=== PATIENT | female | born 2005 | race Two or more races ===

== ENCOUNTER 2025-04-24 09:58 | Emergency (ER) | payer BC, OTHER ==
[~2025-04-24] VITALS: Ht 170.2 cm; Wt 92.2 kg
--- NOTE | 2025-04-24 10:34 | ED.PDOC ---
HPI (NEURO) HPI Comments 19-year-old female presents to the ER with a prior MHx of anxiety, CADET, TIA and the chief complaint of headache. The patient is currently 12 weeks and has been having a headache located to the left temporal region with the association of pressure behind the left eye since 7:00 a.m.. Patient did take Tylenol at 8:00 a.m. of 500 mg. Patient notes on having intermittent nausea. Patient states TV static on right-sided vision. Hx of Migraines No red flags Denies recent changes in medications Denies alcohol, caffeine, illicit drug use Denies benzodiazepines Denies thyroid disorders Denies SI/HI/AH Denies guns at home Denies family history of mental health issue Chief Complaint: Headache Time Seen by MD: 10:20 Reviewed Notes: Nurses Notes, Medications, Allergies Information Source: Patient Mode of Arrival: Ambulatory Severity: Moderate Dizziness/Weakness Severity: Does not affect activitie Headache Severity: Moderate Timing: Hours Duration: Since onset, Hours Prehospital treatment: None Headache Quality: Other (Pressure-like) Headache Location: Temporal (Left temporal) Onset: At rest Circumstances: Spontaneous Symptoms: Change of vision Before: Normal During: Awake After: Normal Mentation History of: TIA Associated Signs and Symptoms: Headache, Nausea Past Medical History PAST MEDICAL HISTORY: Anxiety, TIA Past Medical History (Other): Chronic headache Surgical History: Denies all surgeries SOFTWARE PROJECT MANAGER History: No Pertinent SOFTWARE PROJECT MANAGER History Family History Family History: Reviewed,noncontributory to illness, Unknown Social History Smoker: Non-Smoker Alcohol: Denies ETOH Use Drugs: Denies Drug Use Lives In: Home Constitutional: denies: chills, diaphoresis, fatigue, fever, malaise, sweats, weakness, others EENTM: denies: blurred vision, double vision, ear bleeding, ear discharge, ear drainage, ear pain, ear ringing, eye pain, eye redness, hearing loss, mouth pain, mouth swelling, nasal discharge, nose bleeding, nose congestion, nose pain, photophobia, tearing, throat pain, throat swelling, voice changes, others Respiratory: denies: cough, hemoptysis, orthopnea, SOB at rest, shortness of breath, SOB with excertion, stridor, wheezing, others Cardiovascular: denies: chest pain, dizzy spells, diaphoresis, Dyspnea on exertion, edema, irregular heart beat, left arm pain, lightheadedness, palpitations, PND, syncope, others Gastrointestinal: denies: abdomen distended, abdominal pain, blood streaked bowels, constipated, diarrhea, dysphagia, difficulty swallowing, hematemesis, melena, nausea, poor appetite, poor fluid intake, rectal bleeding, rectal pain, vomiting, others Genitourinary: denies: abnormal vagina bleeding, burning, dyspareunia, dysuria, flank pain, frequency, hematuria, incontinence, pain, , vagina discharge, urgency, others Neurological: reports: headache; denies: dizziness, fainting, left sided numbness, left sided weakness, numbness, paresthesia, pre-existing deficit, right sided numbness, right sided weakness, seizure, speech problems, tingling, tremors, weakness, others Musculoskeletal: denies: back pain, gout, joint pain, joint swelling, muscle pain, muscle stiffness, neck pain, others Integumetry: denies: bruises, change in color, change in hair/nails, dryness, laceration, lesions, lumps, rash, wounds, others Allergic/Immunocompromised: denies: Difficulty Healing, Frequent Infections, Hives, Itching, others Hematologic/Lymphatic: denies: anemia, blood clots, easy bleeding, easy bruising, swollen glands, others Endocrine: denies: excessive hunger, excessive sweating, excessive thirst, excessive urination, flushing, intolerance to cold, intolerance to heat, unexplained weight gain, unexplained weight loss, others Psychiatric: denies: anxiety, bipolar disorder, depression, hopeless, panic disorder, schizophrenia, sleepless, suicidal, others All Other Systems: Reviewed and Negative Physical Exam Exam Comments normocephalic atraumatic General Appearance: No Apparent Distress, Normal HEENT: Normal ENT Inspection, Pharynx Normal, TMs Normal Neck: Full Range of Motion, Non-Tender, Normal, Normal Inspection Respiratory: Chest Non-Tender, Lungs Clear, No Accessory Muscle Use, No Respiratory Distress, Normal Breath Sounds Cardiovascular: No Edema, No JVD, No Murmur, No Gallop, Normal Peripheral Pu lses, Regular Rate/Rhythm Breast Exam: Deferred Gastrointestinal: No Organomegaly, Non Tender, No Pulsatile Mass, Normal Bowel Sounds, Soft Genitalia: Deferred Pelvic: Deferred Rectal: Deferred Extremities: No calf tenderness, Normal capillary refill, Normal inspection, Normal range of motion, Non-tender, No pedal edema Musculoskeletal : Apperance: Normal Neurologic: Alert, director of counterintelligence II-XII nml as Tested, No Motor Deficits, Normal Affect, Normal Mood, No Sensory Deficits Cerebellar Function: Normal Reflexes: Normal Skin: Dry, Normal Color, Warm Lymphatic: No Adenopathy Was a procedure done? Was a procedure done?: No Differential Diagnosis (SZ) Seizure: Other Headache: Cluster, Migraine, Other X-Ray, Labs, Meds, VS Vital Signs Date Time Temp Pulse Resp B/P (MAP) Pulse Ox O2 Delivery O2 Flow Rate FiO2 04/24/25 12:53 98.7 83 17 139/88 (105) 99 98.7 04/24/25 10:36 98.7 97 16 144/96 (112) 97 98.7 04/24/25 10:36 97 16 97 Room Air 04/24/25 10:19 98.3 94 16 145/88 (107) 99 98.3 Lab Test 04/24/25 10:30 04/24/25 10:05 Range/Units Urine Color Light-yellow Yellow Urine Clarity Clear Clear Urine pH 5.5 5.0-9.0 Urine Specific [place] 1.026 1.001-1.035 Urine Protein Negative Negative Urine Ketones Negative Negative Urine Blood Negative Negative /uL Urine Nitrite Negative Negative Urine Bilirubin Negative Negative Urine Urobilinogen Normal Negative mg/dL Urine Leukocyte Esterase 2+ Negative /uL Urine RBC 3 0 - 4 /hpf Urine Microscopic WBC 7 H 0-5 /HPF Urine Squamous Epithelial Cells Few <5 /hpf Urine Bacteria Few H None Seen /hpf Urine Mucus Few None Seen Urine Glucose Normal Normal mg/dL Urine Test Positive Negative White Blood Count 6.9 4.4-10.8 10^3/uL Red Blood Count 4.93 4.0-5.20 10^6/uL Hemoglobin 14.8 12.2-16.2 g/dL Hematocrit 42.1 36.0-46.0 % Mean Corpuscular Volume 85.3 80.0-100.0 fL Mean Corpuscular Hemoglobin 30.0 28.0-32.0 pg Mean Corpuscular Hemoglobin Concent 35.1 32.0-36.0 g/dL Red Cell Distribution Width 12.8 11.8-14.3 % Platelet Count 278 140-450 10^3/uL Mean Platelet Volume 7.1 6.9-10.8 fL Neutrophils (%) (Auto) 77.0 37.0-80.0 % Lymphocytes (%) (Auto) 17.0 10.0-50.0 % Monocytes (%) (Auto) 4.6 0.0-12.0 % Eosinophils (%) (Auto) 1.0 0.0-7.0 % Basophils (%) (Auto) 0.4 0.0-2.0 % Neutrophils # (Auto) 5.3 1.6-8.6 10 ^3/uL Lymphocytes # (Auto) 1.2 0.4-5.4 10 ^3/uL Monocytes # (Auto) 0.3 0-1.3 10 ^3/uL Eosinophils # (Auto) 0.1 0-0.8 10 ^3/uL Basophils # (Auto) 0 0-0.2 10 ^3/uL Nucleated Red Blood Cells 0.0 % Sodium Level 137 136-145 mmol/L Potassium Level 3.7 3.5-5.1 mmol/L Chloride Level 104 98-107 mmol/L Carbon Dioxide Level 24 20-31 mmol/L Anion Gap 9 5-15 Blood Urea Nitrogen 12 9-23 mg/dL Creatinine 0.60 0.550-1.02 mg/dL Glomerular Filtration Rate Calc 131 >90 mL/min BUN/Creatinine Ratio 20.0 10.0-20.0 Serum Glucose 94 74-106 mg/dL Calcium Level 10.0 8.7-10.4 mg/dL X-Ray, Labs, Meds, VS Comment 19-year-old female presents to the ER with a prior MHx of anxiety, CADET, TIA and the chief complaint of headache. Patient arrives alert and oriented, ABC's intact, afebrile, vital signs stable, saturating well in room air CBC was ordered to exclude anemia, blood loss, or infection. BMP was ordered to exclude electrolyte abnormalities, renal failure, dehydration, hyperglycemia Urinalysis was ordered to rule out UTI or hematuria. Patient was given: Tylenol, metoclopramide,. Tolerated medications with no adverse reaction. The patients history and physical exam are consistent with a benign headache. Likely Migraine Considered subarachnoid hemorrhage however this is less likely given that the patient has had a similar and worst headaches in the past, the lack of trauma, and the slow onset with intermittent symptomatology. Low suspicion of meningitis given the afebrile, well-appearing, and without meningismus on exam. Additionally no history of recent trauma prior to the patient experiencing this headache. Finally, the patient does not report any positional exacerbation with the headaches and has not had a recent spinal procedures therefore my suspicion for central causes and post procedural etiologies of headaches are less likely. Low concern for meningitis as there are no signs of fever, altered mentation nor neck stiffness. Brudzinski/Kernig negative. Low concern for subarachnoid hemorrhage there are no signs of a thunderclap headache Low concern for subdural hematoma and intracranial hemorrhage as there is no history of trauma, progressively worsening headache and neuroexam is unrem arkable. Low suspicion for brain tumor as neuroexam is unremarkable. No nausea vomiting. No morning or nocturnal headache. No suspicion for temporal arteritis as there are no signs of fever, muscle weakness, jaw claudication, no transient visual loss. Given benign exam and history, CT imaging was discussed with the patient and was deferred during this visit. Patient was overall well-appearing and hemodynamically stable in the ED. They were able to ambulate and continued to have a nonfocal exam in the emergency department. Discussed continued symptomatic treatment at home. Recommended follow up with PCP. Return precautions to the ED discussed Patient is stable for discharge at this time. External notes reviewed. Test results and diagnostic imaging interpreted. All diagnostic findings, discharge care, education and instructions provided Follow-up with PCP in 2 to 3 days Patient verbalized understanding and agreed to treatment plan Vital signs stable, afebrile, no acute distress noted Patient ambulatory with strong steady gait Advised to return precautions for any new or worsening symptoms, return to ER immediately for re-evaluation Patient is aware that the purpose of this visit was for an acute medical emergency requiring emergent stabilization. Chronic conditions, including malignancies have not been ruled out. Patient is instructed to follow up with PCP as directed and discharge instructions for continued care and workup. If unable to arrange follow-up, patient is to return to the emergency department for reassessment. Patient (parent or legal guardian if applicable) was given verbal and written discharge instructions and acknowledges understanding. Additional MDM Review of External, Non-ED records: External records reviewed. Discussion with independent historian (EMS, family) history obtained from the patient/parents (if applicable) at bedside Chronic conditions affecting care: None Social determinants of health affecting care: None Consideration of admission (observation or admission): I considered escalation of care to admission for this patient, however given the reassuring workup, the patient is safe for outpatient management. Discussion with the Radiology: No Tests considered but not performed: Prescription medication considered but not given: Time of 1ST Reevaluation: 10:50 Reevaluation 1ST: Improved Patient Education/Counseling: Diagnosis, Treatment Family Education/Counseling: Diagnosis, Treatment Departure 1 Departure Time of Disposition: 12:39 Impression: Primary Impression: Headache in Qualified Codes: O26.891 - Other specified related conditions, first trimester; R51.9 - Headache, unspecified Additional Impression: Elevated blood pressure reading Disposition: HOME / SELF CARE / HOMELESS Condition: Fair Discharged With: Self Critical Care Note Critical Care Time?: No Stability Stability form required: No Heart Score Heart Score: Heart Score Response (Comments) Value History N/A 0 EKG N/A 0 Age N/A 0 Risk Factors N/A 0 Troponin N/A 0 Total 0 I personally scribed for LILIAM MELÉNDEZ NP ([employer]) on 04/24/25 at 10:34. Electronically submitted by Stevenson Lees ([email or web address]). I personally scribed for LILIAM MELÉNDEZ NP ([employer]) on 04/24/25 at 10:35. Electronically submitted by Stevenson Lees ([email or web address]). LILIAM MELÉNDEZ NP Apr 24, 2025 10:34
[2025-04-24] MEDS: METOCLOPRAMIDE HCL 5MG/ml INJ 2ml VIAL IM ONE (10:38)
[2025-04-24] MEDS: ACETAMINOPHEN 500 MG TAB or CAP PO ONE (10:39)
[2025-04-24 11:13] LABS: Hematocrit 42.1 % (36.0-46.0); Hemoglobin 14.8 g/dL (12.2-16.2); Mean Corpuscular Hemoglobin 30.0 pg (28.0-32.0); Mean Corpuscular Volume 85.3 fL (80.0-100.0); Nucleated Red Blood Cells % 0.0 %
[2025-04-24 11:23] LABS: Urine Protein, UAD Negative (Negative)
[2025-04-24 11:32] LABS: Chloride 104 mmol/L (98-107); Potassium 3.7 mmol/L (3.5-5.1); Sodium 137 mmol/L (136-145)
[2025-04-24 11:33] LABS: Anion Gap 9 (5-15); Carbon Dioxide 24 mmol/L (20-31)
[2025-04-24 11:34] LABS: Calcium 10.0 mg/dL (8.7-10.4)
[2025-04-24 11:38] LABS: BUN/Creatinine Ratio 20.0 (10.0-20.0); Blood Urea Nitrogen 12 mg/dL (9-23); Glucose 94 mg/dL (74-106)
[2025-04-24 12:53] VITALS: BP 139/88; PULSE 83; RESP 17; TEMP 98.7; O2SAT 99
== END 2025-04-24 12:55 | disposition home or self-care (01) ==
LOC: ER 09:58
DX: O29.41 Spinal and epidural anesthesia induced headache during pregnancy, first trimester (principal); F41.9 Anxiety disorder, unspecified; R03.0 Elevated blood-pressure reading, without diagnosis of hypertension; Z3A.12 12 weeks gestation of pregnancy
CPT/HCPCS: 36415; 80048; 81001; 81025; 85025; 96372; 99283; J2765

== ENCOUNTER 2025-08-15 14:35 | Emergency (ER) | payer BC, OTHER ==
[~2025-08-15] VITALS: Ht 170.2 cm; Wt 101.3 kg
--- NOTE | 2025-08-15 16:01 | ED.PDOC ---
History of Present Illness HPI Comments 20 year old female with PMHx anxiety presents to the ED with a chief complaint of dizziness onset today. Patient states she was asleep, woke up around 04:00 experiencing dizziness, went back to sleep, woke up around 07:00, experiencing dizziness. She is currently 7 months . Upon ED arrival, BG was 77, called OBGYN, was recommended to come to ED. Denies fever, chills, nausea, vomiting, diarrhea, headache, cough, cold, congestion. No other symptoms or modifying factors present at this time. Chief Complaint: Dizziness Time Seen by MD: 15:50 Reviewed Notes: Nurses Notes, Medications, Allergies Allergies: Coded Allergies: NO KNOWN ALLERGIES (Unverified , 04/24/25) Information Source: Patient Mode of Arrival: Ambulatory Severity: Moderate Timing: Hours Duration: Since onset Prehospital treatment: None Past Medical History PAST MEDICAL HISTORY: Anxiety, TIA Surgical History: Denies all surgeries OCCUPATIONAL PSYCHOLOGIST History: No Pertinent OCCUPATIONAL PSYCHOLOGIST History Family History Family History: Reviewed,noncontributory to illness, Unknown Social History Smoker: Non-Smoker Alcohol: Denies ETOH Use Drugs: Denies Drug Use Lives In: Home Constitutional: denies: chills, diaphoresis, fatigue, fever, malaise, sweats, weakness, others EENTM: denies: blurred vision, double vision, ear bleeding, ear discharge, ear drainage, ear pain, ear ringing, eye pain, eye redness, hearing loss, mouth pain, mouth swelling, nasal discharge, nose bleeding, nose congestion, nose pain, photophobia, tearing, throat pain, throat swelling, voice changes, others Respiratory: denies: cough, hemoptysis, orthopnea, SOB at rest, shortness of breath, SOB with excertion, stridor, wheezing, others Cardiovascular: denies: chest pain, dizzy spells, diaphoresis, Dyspnea on exertion, edema, irregular heart beat, left arm pain, lightheadedness, palpitations, PND, syncope, others Gastrointestinal: denies: abdomen distended, abdominal pain, blood streaked bowels, constipated, diarrhea, dysphagia, difficulty swallowing, hematemesis, melena, nausea, poor appetite, poor fluid intake, rectal bleeding, rectal pain, vomiting, others Genitourinary: reports: ; denies: abnormal vagina bleeding, burning, dyspareunia, dysuria, flank pain, frequency, hematuria, incontinence, pain, vagina discharge, urgency, others Neurological: reports: dizziness; denies: fainting, headache, left sided numbness, left sided weakness, numbness, paresthesia, pre-existing deficit, right sided numbness, right sided weakness, seizure, speech problems, tingling, tremors, weakness, others Musculoskeletal: denies: back pain, gout, joint pain, joint swelling, muscle pain, muscle stiffness, neck pain, others Integumetry: denies: bruises, change in color, change in hair/nails, dryness, laceration, lesions, lumps, rash, wounds, others Allergic/Immunocompromised: denies: Difficulty Healing, Frequent Infections, Hives, Itching, others Hematologic/Lymphatic: denies: anemia, blood clots, easy bleeding, easy bruising, swollen glands, others Endocrine: denies: excessive hunger, excessive sweating, excessive thirst, excessive urination, flushing, intolerance to cold, intolerance to heat, unexplained weight gain, unexplained weight loss, others Psychiatric: denies: anxiety, bipolar disorder, depression, hopeless, panic disorder, schizophrenia, sleepless, suicidal, others All Other Systems: Reviewed and Negative Physical Exam General Appearance: No Apparent Distress, Normal HEENT: Normal ENT Inspection, Pharynx Normal, TMs Normal Neck: Full Range of Motion, Non-Tender, Normal, Normal Inspection Respiratory: Chest Non-Tender, Lungs Clear, No Accessory Muscle Use, No Respiratory Distress, Normal Breath Sounds Cardiovascular: No Edema, No JVD, No Murmur, No Gallop, Normal Peripheral Pulses, Regular Rate/Rhythm Breast Exam: Deferred Gastrointestinal: No Organomegaly, Non Tender, No Pulsatile Mass, Normal Bowel Sounds, Soft Genitalia: Deferred Pelvic: Deferred Rectal: Deferred Extremities: No calf tenderness, Normal capillary refill, Normal inspection, Normal range of motion, Non-tender, No pedal edema Musculoskeletal : Apperance: Normal Neurologic: Alert, senior ssis developer II-XII nml as Tested, No Motor Deficits, Normal Affect, Normal Mood, No Sensory Deficits Cerebellar Function: Normal Reflexes: Normal Skin: Dry, Normal Color, Warm Lymphatic: No Adenopathy Was a procedure done? Was a procedure done?: No Differential Dx Considerations may include: Hypertension, low blood sugar, dehydration X-Ray, Labs, Meds, VS Vital Signs Date Time Temp Pulse Resp B/P (MAP) Pulse Ox O2 Delivery O2 Flow Rate FiO2 08/15/25 14:37 98.5 101 18 147/91 99 98.5 Lab Test 08/15/25 15:57 08/15/25 14:46 Range/Units White Blood Count 8.8 4.4-10.8 10^3/uL Red Blood Count 4.79 4.0-5.20 10^6/uL Hemoglobin 14.1 12.2-16.2 g/dL Hematocrit 40.7 36.0-46.0 % Mean Corpuscular Volume 84.9 80.0-100.0 fL Mean Corpuscular Hemoglobin 29.5 28.0-32.0 pg Mean Corpuscular Hemoglobin Concent 34.8 32.0-36.0 g/dL Red Cell Distribution Width 13.3 11.8-14.3 % Platelet Count 298 140-450 10^3/uL Mean Platelet Volume 8.0 6.9-10.8 fL Neutrophils (%) (Auto) 78.7 37.0-80.0 % Lymphocytes (%) (Auto) 15.4 10.0-50.0 % Monocytes (%) (Auto) 4.9 0.0-12.0 % Eosinophils (%) (Auto) 0.8 0.0-7.0 % Basophils (%) (Auto) 0.2 0.0-2.0 % Neutrophils # (Auto) 6.9 1.6-8.6 10 ^3/uL Lymphocytes # (Auto) 1.3 0.4-5.4 10 ^3/uL Monocytes # (Auto) 0.4 0-1.3 10 ^3/uL Eosinophils # (Auto) 0.1 0-0.8 10 ^3/uL Basophils # (Auto) 0 0-0.2 10 ^3/uL Nucleated Red Blood Cells 0.2 % Sodium Level 139 136-145 mmol/L Potassium Level 4.1 3.5-5.1 mmol/L Chloride Level 103 98-107 mmol/L Carbon Dioxide Level 25 20-31 mmol/L Anion Gap 11 5-15 Blood Urea Nitrogen 10 9-23 mg/dL Creatinine 0.56 0.550-1.02 mg/dL Glomerular Filtration Rate Calc 132 >90 mL/min BUN/Creatinine Ratio 17.9 10.0-20.0 Serum Glucose 79 74-106 mg/dL Calcium Level 9.4 8.7-10.4 mg/dL Total Bilirubin 0.2 0.2-1.0 mg/dL Aspartate Amino Transferase (AST) 14 13-40 U/L Alanine Aminotransferase (ALT) 29 7-40 U/L Alkaline Phosphatase 97 46-116 U/L Total Protein 6.5 5.7-8.2 g/dL Albumin 4.0 3.2-4.8 g/dL Urine Color Light-yellow Yellow Urine Clarity Clear Clear Urine pH 6.0 5.0-9.0 Urine Specific [place] 1.023 1.001-1.035 Urine Protein Negative Negative Urine Ketones Negative Negative Urine Blood Negative Negative /uL Urine Nitrite Negative Negative Urine Bilirubin Negative Negative Urine Urobilinogen Normal Negative mg/dL Urine Leukocyte Esterase Negative Negative /uL Urine RBC None seen 0 - 4 /hpf Urine Microscopic WBC 1 0-5 /HPF Urine Squamous Epithelial Cells Few <5 /hpf Urine Calcium Oxalate Crystals Many None Seen Urine Bacteria Few H None Seen /hpf Urine Mucus Few None Seen Urine Glucose Normal Normal mg/dL X-Ray, Labs, Meds, VS Comment Imaging was reviewed by this provider, there is no obvious pathological or acute disease process. Pending radiology review Labs were reviewed by this provider, no abnormalities Vital signs reviewed by this provider, clinically stable Time of 1ST Reevaluation: 16:20 Reevaluation 1ST: Unchanged Patient Education/Counseling: Diagnosis, Treatment, Prognosis, Need For Follow Up (Follow up with PCP/OBGYN next available appointment.) Family Education/Counseling: No Family Present SEPSIS Sepsis Screen Date sepsis recognized/suspect: Aug 15, 2025 Time Sepsis recognized/suspect: 1438 Recent Procedure: No On Antibiotic Therapy: No Respiratory Rate >20: No Heart Rate >90: No Temp<36 C (96.8 F) or >38.3 C: No SBP <90 or MAP <65 mmHG: No New Acute Mental Status Change: No Is the patient on CPAP, BIPAP,: No Vital Signs Date Time Temp Pulse Resp B/P (MAP) Pulse Ox O2 Delivery O2 Flow Rate FiO2 08/15/25 14:37 98.5 101 18 147/91 99 98.5 Laboratory Tests Test 08/15/25 15:57 White Blood Count 8.8 10^3/uL (4.4-10.8) Departure 1 Departure Time of Disposition: 17:51 Impression: Primary Impression: Benign positional vertigo Qualified Codes: H81.13 - Benign paroxysmal vertigo, bilateral Disposition: 01 HOME / SELF CARE / HOMELESS Condition: Stable Discharged With: Self Critical Care Note Critical Care Time?: No Stability Stability form required: No Heart Score Heart Score: Heart Score Response (Comments) Value History N/A 0 EKG N/A 0 Age N/A 0 Risk Factors N/A 0 Troponin N/A 0 Total 0 I personally scribed for MARTHA DOW ([email or web address]) on 08/15/25 at 16:01. Electronically submitted by Trixie Olivas ([email or web address]). MARTHA DOW Aug 15, 2025 16:01
[2025-08-15 16:16] LABS: Urine Protein, UAD Negative (Negative)
[2025-08-15 16:23] LABS: Hematocrit 40.7 % (36.0-46.0); Hemoglobin 14.1 g/dL (12.2-16.2); Mean Corpuscular Hemoglobin 29.5 pg (28.0-32.0); Mean Corpuscular Volume 84.9 fL (80.0-100.0); Nucleated Red Blood Cells % 0.2 %
[2025-08-15 16:37] LABS: Alanine Aminotransferase 29 U/L (7-40); Albumin 4.0 g/dL (3.2-4.8); Alkaline Phosphatase 97 U/L (46-116); Anion Gap 11 (5-15); BUN/Creatinine Ratio 17.9 (10.0-20.0); Blood Urea Nitrogen 10 mg/dL (9-23); Calcium 9.4 mg/dL (8.7-10.4); Carbon Dioxide 25 mmol/L (20-31); Chloride 103 mmol/L (98-107); Glucose 79 mg/dL (74-106); Potassium 4.1 mmol/L (3.5-5.1); Sodium 139 mmol/L (136-145); Total Protein 6.5 g/dL (5.7-8.2)
[2025-08-15 16:58] LABS: Bilirubin, Total 0.2 mg/dL (0.2-1.0)
[2025-08-15 18:25] VITALS: BP 123/93; TEMP 98.4
[2025-08-15 18:26] VITALS: PULSE 85; RESP 18; O2SAT 97
== END 2025-08-15 18:35 | disposition home or self-care (01) ==
LOC: ER 14:35
DX: O26.893 Other specified pregnancy related conditions, third trimester (principal); H81.13 Benign paroxysmal vertigo, bilateral; Z3A.00 Weeks of gestation of pregnancy not specified; Z86.73 Personal history of transient ischemic attack (TIA), and cerebral infarction without residual deficits
CPT/HCPCS: 36415; 80053; 81001; 82947; 85025

== ENCOUNTER 2025-09-24 16:42 | Inpatient (IN) | payer OTHER ==
[~2025-09-24] VITALS: Ht 170.2 cm; Wt 106.9 kg
--- NOTE | 2025-09-24 19:22 | ED.PDOC ---
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 Patient is a approximately 34 weeks , states her blood pressure has been elevated recently. On scene blood pressure was 166/ 117 mm Hg. Patient admits that she has been stressed recently. Denies any vaginal bleeding abdominal cramping. Chief Complaint: Anxiety Time Seen by MD: 19:21 Reviewed Notes: Nurses Notes Allergies: Coded Allergies: NO KNOWN ALLERGIES (Unverified , 04/24/25) Information Source: Patient Mode of Arrival: Ambulatory Past Medical History PAST MEDICAL HISTORY: Anxiety, Denies Surgical History: Denies all surgeries SUPERVISOR CLAM BED History: No Pertinent SUPERVISOR CLAM BED History 1 Para 0 Family History Family History: Reviewed,noncontributory to illness, Unknown Social History Smoker: Non-Smoker Alcohol: Denies ETOH Use Drugs: Denies Drug Use Lives In: Home Constitutional: denies: chills, diaphoresis, fatigue, fever, malaise, sweats, weakness, others EENTM: denies: blurred vision, double vision, ear bleeding, ear discharge, ear drainage, ear pain, ear ringing, eye pain, eye redness, hearing loss, mouth pain, mouth swelling, nasal discharge, nose bleeding, nose congestion, nose pain, photophobia, tearing, throat pain, throat swelling, voice changes, others Respiratory: denies: cough, hemoptysis, orthopnea, SOB at rest, shortness of breath, SOB with excertion, stridor, wheezing, others Cardiovascular: denies: chest pain, dizzy spells, diaphoresis, Dyspnea on exertion, edema, irregular heart beat, left arm pain, lightheadedness, palpitations, PND, syncope, others Gastrointestinal: denies: abdomen distended, abdominal pain, blood streaked bowels, constipated, diarrhea, dysphagia, difficulty swallowing, hematemesis, melena, nausea, poor appetite, poor fluid intake, rectal bleeding, rectal pain, vomiting, others Genitourinary: denies: abnormal vagina bleeding, burning, dyspareunia, dysuria, flank pain, frequency, hematuria, incontinence, pain, , vagina discharge, urgency, others Neurological: denies: dizziness, fainting, headache, left sided numbness, left sided weakness, numbness, paresthesia, pre-existing deficit, right sided numbness, right sided weakness, seizure, speech problems, tingling, tremors, weakness, others Musculoskeletal: denies: back pain, gout, joint pain, joint swelling, muscle pa in, muscle stiffness, neck pain, others Integumetry: denies: bruises, change in color, change in hair/nails, dryness, laceration, lesions, lumps, rash, wounds, others Allergic/Immunocompromised: denies: Difficulty Healing, Frequent Infections, Hives, Itching, others Hematologic/Lymphatic: denies: anemia, blood clots, easy bleeding, easy bruising, swollen glands, others Endocrine: denies: excessive hunger, excessive sweating, excessive thirst, excessive urination, flushing, intolerance to cold, intolerance to heat, unexplained weight gain, unexplained weight loss, others Psychiatric: denies: anxiety, bipolar disorder, depression, hopeless, panic disorder, schizophrenia, sleepless, suicidal, others Physical Exam General Appearance: No Apparent Distress, Normal HEENT: Normal ENT Inspection, Pharynx Normal, TMs Normal Neck: Full Range of Motion, Non-Tender, Normal, Normal Inspection Respiratory: Chest Non-Tender, Lungs Clear, No Accessory Muscle Use, No Respiratory Distress, Normal Breath Sounds Cardiovascular: No Edema, No JVD, No Murmur, No Gallop, Normal Peripheral Pulses, Regular Rate/Rhythm Breast Exam: Deferred Gastrointestinal: No Organomegaly, Non Tender, No Pulsatile Mass, Normal Bowel Sounds, Soft Genitalia: Deferred Pelvic: Deferred Rectal: Deferred Extremities: No calf tenderness, Normal capillary refill, Normal inspection, Normal range of motion, Non-tender, No pedal edema Musculoskeletal : Apperance: Normal Neurologic: Alert, construction checker II-XII nml as Tested, No Motor Deficits, Normal Affect, Normal Mood, No Sensory Deficits Cerebellar Function: Normal Reflexes: Normal Skin: Dry, Normal Color, Warm Lymphatic: No Adenopathy Was a procedure done? Was a procedure done?: No Differential Diagnosis (SUPERVISOR CLAM BED) Vaginal Discharge: , UTI Comments Preeclampsia X-Ray, Labs, Meds, VS Vital Signs Date Time Temp Pulse Resp B/P (MAP) Pulse Ox O2 Delivery O2 Flow Rate FiO2 09/24/25 18:53 98.6 84 18 144/94 (111) 98 98.6 09/24/25 16:44 98.3 119 20 166/117 98 98.3 Lab Test 09/24/25 19:14 Range/Units Urine Color Light-yellow Yellow Urine Clarity Clear Clear Urine pH 6.5 5.0-9.0 Urine Specific [place] 1.015 1.001-1.035 Urine Protein Negative Negative Urine Ketones 1+ H Negative Urine Blood Negative Negative /uL Urine Nitrite Negative Negative Urine Bilirubin Negative Negative Urine Urobilinogen Normal Negative mg/dL Urine Leukocyte Esterase Negative Negative /uL Urine RBC None seen 0 - 4 /hpf Urine Microscopic WBC 1 0-5 /HPF Urine Squamous Epithelial Cells Few <5 /hpf Urine Bacteria Few H None Seen /hpf Urine Mucus Few None Seen Urine Glucose Normal Normal mg/dL Time of 1ST Reevaluation: 19:19 Reevaluation 1ST: Unchanged Patient Education/Counseling: Diagnosis, Treatment Family Education/Counseling: Need For Follow Up Departure 1 Departure Time of Disposition: 20:07 Impression: Primary Impression: Pre-eclampsia Additional Impression: 34 weeks gestation of Disposition: ADMITTED INPATIENT Admit to: Other (Labor and delivery) Condition: Guarded Comments 20-year-old female with a 34 week now with high blood pressure, bilateral lower extremity edema, dizziness and headache. Her blood pressure is quite elevated. Patient will need to be admitted for preeclampsia and 3rd trimester . Critical Care Note Critical Care Time?: Yes (35 min-critical care time only) Stability Stability form required: No Heart Score Heart Score: Heart Score Response (Comments) Value History N/A 0 EKG N/A 0 Age N/A 0 Risk Factors N/A 0 Troponin N/A 0 Total 0 I personally scribed for EVAN IYER MD ([email or web address]) on 09/24/25 at 19:21. Electronically submitted by Caleb Stein ([email or web address]). EVAN IYER MD Sep 24, 2025 19:21
[2025-09-24 19:55] LABS: Urine Protein, UAD Negative (Negative)
[2025-09-24] MEDS: MAGNESIUM SULFATE 1GM/100ML 100 ML IV SCH (20:15)
[2025-09-24 20:22] LABS: Hematocrit 40.1 % (36.0-46.0); Hemoglobin 13.5 g/dL (12.2-16.2); Mean Corpuscular Hemoglobin 27.9 pg (28.0-32.0); Mean Corpuscular Volume 83.0 fL (80.0-100.0); Nucleated Red Blood Cells % 0.1 %
--- NOTE | 2025-09-24 20:28 | DVH ---
OB ULTRASOUND, LIMITED CLINICAL INDICATION: abd pain 34 wk preg TECHNIQUE: Multiple grayscale ultrasound and M-mode images were obtained of the pelvis for evaluation of intrauterine . COMPARISON: None FINDINGS: A single living fetus is seen in presentation. Biparietal diameter: 8.32 cm (33 weeks, 3 days) Head Circumference: 30.22 cm (33 weeks, 4 days) Abdomen Circumference: 30.51 cm (34 weeks, 3 days) Femur Length: 6.32 cm (32 weeks, 5 days) Estimated weight: 2273 grams (+/- 341 grams). Placenta: Anterior, grade 1. Amniotic fluid: Visibly normal. JIMI 14 cm heart rate: 129 beats/min. A complete anatomic survey was not performed on this exam. 4-chamber heart, bilateral kidneys, stomach, and urinary bladder grossly unremarkable. Cervix is 3.4 cm and closed IMPRESSION: 1. Single intrauterine with an estimated gestational age of 33 weeks, 4 days, corresponding to an estimated date of delivery of 11/08/2025.
[2025-09-24 20:38] LABS: Alanine Aminotransferase 18 U/L (7-40); Albumin 4.0 g/dL (3.2-4.8); Anion Gap 11 (5-15); BUN/Creatinine Ratio 9.4 (10.0-20.0); Bilirubin, Total 0.3 mg/dL (0.2-1.0); Calcium 9.4 mg/dL (8.7-10.4); Carbon Dioxide 24 mmol/L (20-31); Chloride 105 mmol/L (98-107); Glucose 79 mg/dL (74-106); Magnesium 1.9 mg/dL (1.6-2.6); Potassium 4.3 mmol/L (3.5-5.1); Sodium 140 mmol/L (136-145); Total Protein 6.5 g/dL (5.7-8.2)
[2025-09-24 20:41] LABS: Alkaline Phosphatase 120 U/L (46-116); Blood Urea Nitrogen 6 mg/dL (9-23)
[2025-09-25] MEDS ORDERED: ACETAMINOPHEN 325 MG TAB PO PRN
[2025-09-25] MEDS ORDERED: ONDANSETRON HCL 4 MG/2 ML VIAL IV PRN
[2025-09-25 00:29] LABS: Protein, Urine 20.0 mg/dL (1-14)
[2025-09-25 02:26] VITALS: BP 156/108; PULSE 98; RESP 17; RESP 18; TEMP 97.7; O2SAT 99
--- NOTE | 2025-09-25 06:19 | DVHHPRES ---
History of Present Illness Resident Creating Document: LUCIA GUTIERREZ RESIDENT History of Present Illness Patient is a 20-year-old female at approximately 34 weeks presented to the hospital for elevated blood pressure noticed as to home. Patient reported that she was having bilateral lower extremity swelling following which she checked her blood pressure at home which was initially around 165 by 109 mmHg following which she came to the ER for further evaluation. In the ER BP reading was 166/117 mmHg in the 2nd reading was 144/94 mmHg. This is her 1st . Patient denied any persistent or severe headache, visual abnormalities, epigastric pain or dyspnea/orthopnea. Patient was admitted for further evaluation. Past medical history: Anxiety, migraine with aura Surgical history: Denies Social history: patient denies smoking, alcohol, drug use No home medications Review of Systems Review of Systems Denies any fever, chills, shortness of breath, chest pain, abdominal pain, nausea or vomiting, dysuria Allergies: Coded Allergies: NO KNOWN ALLERGIES (Unverified , 04/24/25) Medications Current Medications Medications Dose Ordered Sig/Juliana Route Start Time Stop Time Status Last Admin Dose Admin Nifedipine 30 mg DAILY PO 09/25/25 10:00 Acetaminophen 650 mg Q6HP PRN PO 09/25/25 00:00 Ondansetron HCl 4 mg Q6HPRN PRN IV 09/25/25 00:00 Exam Vital Signs Vital Signs Date Time Temp Pulse Resp B/P (MAP) Pulse Ox O2 Delivery O2 Flow Rate FiO2 09/25/25 02:26 98 18 99 Room Air* 0 21 09/25/25 02:26 97.7 156/108 (124) 97.7 Exam Skin - Patients skin is warm and dry. HEENT - normocephalic, atraumatic, moist mucous membranes, no scleral icterus, no conjunctival pallor. Neck - full ROM, no LAD, no JVD Pulmonary - B/L clear breath sounds without any wheezing, rales or stridor cardiovascular - regular S1,S2 heard, no added sounds or murmurs. peripheral pulses normal radial 2+, pedal 2+. No edema in the lower extremities GI - soft, nontender abdomen. no hepatospleenomegaly. Bowel sounds normoactive Neurological - Patient is A/O X 4 . Bilateral upper extremity strength 5/5, bilateral lower extremity strength 5/5, no facial droop, normal speech, no tremor, no sensory deficiets. Labs/Xrays Labs Test 09/24/25 20:12 09/24/25 19:14 Range/Units White Blood Count 7.0 4.4-10.8 10^3/uL Red Blood Count 4.83 4.0-5.20 10^6/uL Hemoglobin 13.5 12.2-16.2 g/dL Hematocrit 40.1 36.0-46.0 % Mean Corpuscular Volume 83.0 80.0-100.0 fL Mean Corpuscular Hemoglobin 27.9 L 28.0-32.0 pg Mean Corpuscular Hemoglobin Concent 33.6 32.0-36.0 g/dL Red Cell Distribution Width 13.1 11.8-14.3 % Platelet Count 264 140-450 10^3/uL Mean Platelet Volume 8.2 6.9-10.8 fL Neutrophils (%) (Auto) 72.6 37.0-80.0 % Lymphocytes (%) (Auto) 20.9 10.0-50.0 % Monocytes (%) (Auto) 5.6 0.0-12.0 % Eosinophils (%) (Auto) 0.5 0.0-7.0 % Basophils (%) (Auto) 0.4 0.0-2.0 % Neutrophils # (Auto) 5.1 1.6-8.6 10 ^3/uL Lymphocytes # (Auto) 1.5 0.4-5.4 10 ^3/uL Monocytes # (Auto) 0.4 0-1.3 10 ^3/uL Eosinophils # (Auto) 0 0-0.8 10 ^3/uL Basophils # (Auto) 0 0-0.2 10 ^3/uL Nucleated Red Blood Cells 0.1 % Sodium Level 140 136-145 mmol/L Potassium Level 4.3 3.5-5.1 mmol/L Chloride Level 105 98-107 mmol/L Carbon Dioxide Level 24 20-31 mmol/L Anion Gap 11 5-15 Blood Urea Nitrogen 6 L 9-23 mg/dL Creatinine 0.64 0.550-1.02 mg/dL Glomerular Filtration Rate Calc 128 >90 mL/min BUN/Creatinine Ratio 9.4 L 10.0-20.0 Serum Glucose 79 74-106 mg/dL Calcium Level 9.4 8.7-10.4 mg/dL Magnesium Level 1.9 1.6-2.6 mg/dL Total Bilirubin 0.3 0.2-1.0 mg/dL Aspartate Amino Transferase (AST) 17 13-40 U/L Alanine Aminotransferase (ALT) 18 7-40 U/L Alkaline Phosphatase 120 H 46-116 U/L Total Protein 6.5 5.7-8.2 g/dL Albumin 4.0 3.2-4.8 g/dL Urine Color Light-yellow Yellow Urine Clarity Clear Clear Urine pH 6.5 5.0-9.0 Urine Specific [place] 1.015 1.001-1.035 Urine Protein Negative Negative Urine Ketones 1+ H Negative Urine Blood Negative Negative /uL Urine Nitrite Negative Negative Urine Bilirubin Negative Negative Urine Urobilinogen Normal Negative mg/dL Urine Leukocyte Esterase Negative Negative /uL Urine RBC None seen 0 - 4 /hpf Urine Microscopic WBC 1 0-5 /HPF Urine Squamous Epithelial Cells Few <5 /hpf Urine Bacteria Few H None Seen /hpf Urine Mucus Few None Seen Urine Creatinine 81.58 30.0-125.0 mg/dL Urine Protein/Creatinine Ratio 0.25 Urine Glucose Normal Normal mg/dL Urine Total Protein 20.0 H 1-14 mg/dL SEPSIS Sepsis Screen Date sepsis recognized/suspect: Sep 24, 2025 Time Sepsis recognized/suspect: 1858 Recent Procedure: No On Antibiotic Therapy: No Respiratory Rate >20: No Heart Rate >90: No Temp<36 C (96.8 F) or >38.3 C: No SBP <90 or MAP <65 mmHG: No New Acute Mental Status Change: No Is the patient on CPAP, BIPAP,: No Physician Orders Admit (09/24/25 23:54) Stat Ekg For Chest Pain (09/24/25 23:54) Notify Md Of Changes From Base (09/24/25 23:54) Nifedipine Er (Procardia Xl (Time-Releas (09/25/25 10:00) * Invoice Coder Consultation (09/24/25 23:54) Regular Diet (09/25/25 Breakfast) Acetaminophen Tablet (Tylenol Tablet) (09/25/25 00:00) Ondansetron Hcl (Zofran) (09/25/25 00:00) * Trap Setter Consult (09/25/25 03:15) Vital Signs Date Time Temp Pulse Resp B/P (MAP) Pulse Ox O2 Delivery O2 Flow Rate FiO2 09/25/25 02:26 98 18 99 Room Air* 0 21 09/25/25 02:26 97.7 98 17 156/108 (124) 99 97.7 09/25/25 00:24 105 18 162/106 (124) 98 09/25/25 00:23 162/106 Laboratory Tests Test 09/24/25 20:12 White Blood Count 7.0 10^3/uL (4.4-10.8) Medications Medications Dose Ordered Sig/Juliana Route Start Time Stop Time Status Last Admin Dose Admin Magnesium Sulfate/ Dextrose 100 ml @ 100 mls/hr Q1H IV 09/24/25 19:15 09/24/25 21:14 DC 09/24/25 20:15 100 MLS/HR Nifedipine 30 mg ONCE ONCE PO 09/25/25 00:00 09/25/25 00:04 DC 09/25/25 00:23 30 MG Assessment/Plan Assessment/Plan Gestational hypertension ?Preeclampsia Plan - nifedipine 30 mg daily - labetalol PRN for goal blood pressure less than 140/90 - urine protein creatinine ratio pending - OBGYN consult - Ob ultrasound showed single intrauterine with the estimated gestational age of 33 weeks 4 days Goals of care discussed with the patient. Full code Time spent: 31 minutes Plan discussed with Dr. Ravi Plan discussed with: Patient My Orders Orders - LUCIA GUTIERREZ RESIDENT Procedure Category Date Status Time Admit ADMIT 09/24/25 Transmitted 23:54 Stat Ekg For Chest DELVIN 09/24/25 In Process Pain 23:54 Notify Of Changes DELVIN 09/24/25 In Process From Base 23:54 Nifedipine Er PHA 09/25/25 In Process (Procardia Xl 10:00 * Invoice Coder Consultation CONS 09/24/25 Transmitted 23:54 Regular Diet DIET 09/25/25 Transmitted Breakfast Acetaminophen Tablet PHA 09/25/25 In Process (Tylenol Tablet) 00:00 Ondansetron Hcl PHA 09/25/25 In Process (Zofran) 00:00 * Trap Setter CONS 09/25/25 Transmitted Consult 03:15 Visit Coding STANDARD RES Billing Provider: DARLENE RAVI MD Date of Service if different f: Sep 24, 2025 Common Visit Codes: 28046-[id number] INP/OBS CARE (HIGH) Secondary Visit Codes: 54838-[id number] CARE PLAN 30 MINUTES LUCIA GUTIERREZ RESIDENT Sep 25, 2025 06:19
[2025-09-25 09:00] VITALS: BP 147/101; PULSE 93; RESP 16; TEMP 97.7; O2SAT 99
[2025-09-25 13:00] VITALS: BP 151/102; PULSE 84; RESP 16; TEMP 97.8; O2SAT 100
[2025-09-25] MEDS: LABETALOL HCL 20 MG/4 ML VL IV PRN (16:03)
[2025-09-25 17:00] VITALS: BP 146/95; PULSE 87; RESP 18; TEMP 97.9; O2SAT 99
--- NOTE | 2025-09-25 17:04 | DVHPN2 ---
Assessment/Plan Assessment/Plan progress note 20f 34w w anxiety and depression presented with elevated bp. reported having high bp on multiple ob visit even prior to 20w. no proteinuria, no headache, no epigastric pain, ur cr ratio 0.25. no end organ damage. pending ob clearance. started on nifedipine for gestational htn. although pt also have multiple stressors right now, could be anxiety component. physica exam aox4 gravid s1 s2 rrr clear breath sounds abdomen soft LE edema labs ekg imaging reviewed assessment and plan rule out preeclampsia likely htn in anxiety depression nifedipine ob consult ss for resources possible dc home once cleared by ob diet cardiac dvt ppx n/a full code Plan discussed with: Patient Date of Service: Sep 25, 2025 Billing Provider: DARLENE RAVI MD Common Visit Codes: [id number] INP/OBS CARE(HIGH) DARLENE RAVI MD Sep 25, 2025 17:04
[2025-09-25 21:00] VITALS: BP 149/90; PULSE 98; RESP 18; TEMP 98; O2SAT 97
[2025-09-25 23:58] VITALS: PULSE 94; RESP 18; O2SAT 98
[2025-09-26 00:26] VITALS: BP 150/100; PULSE 94; RESP 18; TEMP 97.9; O2SAT 98
[2025-09-26 05:00] VITALS: BP 132/89; PULSE 102; RESP 18; TEMP 97.8; O2SAT 95
[2025-09-26] MEDS: LABETALOL HCL 20 MG/4 ML VL IV ONE (08:06)
[2025-09-26 09:00] VITALS: BP 143/92; PULSE 75; RESP 18; TEMP 97.6; O2SAT 98
[2025-09-26] MEDS: LABETALOL HCL 200 MG TAB PO SCH (11:28)
--- NOTE | 2025-09-26 11:45 | DVH ---
BIOPHYSICAL PROFILE HISTORY: preeclampsia Comparison Study: US OB ULTRASOUND COMP GTR 14 WKS on DOS: 09/24/25 TECHNIQUE: Multiple real-time grayscale sonographic images through the gravid uterus of the fetus with duplex Doppler color flow and M-mode spectral analysis FINDINGS: BIOPHYSICAL PROFILE: breathing score: 2 movement score: 2 tone score: 2 Quantitative JIMI score: 2 (JIMI: 19.5 Cm.) Total score: 8 The cervix is closed and measures 3.4 cm. Single live fetus in cephalic presentation. heart rate 150 beats per minute. Grade 2, anterior placenta without previa or abruption IMPRESSION: Biophysical profile score: 8
[2025-09-26 12:23] LABS: Hematocrit 36.9 % (36.0-46.0); Hemoglobin 12.6 g/dL (12.2-16.2); Mean Corpuscular Hemoglobin 28.2 pg (28.0-32.0); Mean Corpuscular Volume 82.9 fL (80.0-100.0); Nucleated Red Blood Cells % 0.0 %
[2025-09-26 12:40] LABS: Alanine Aminotransferase 21 U/L (7-40); Albumin 3.6 g/dL (3.2-4.8); Anion Gap 10 (5-15); BUN/Creatinine Ratio 11.8 (10.0-20.0); Calcium 9.3 mg/dL (8.7-10.4); Carbon Dioxide 22 mmol/L (20-31); Glucose 96 mg/dL (74-106); Potassium 3.7 mmol/L (3.5-5.1); Sodium 139 mmol/L (136-145); Total Protein 6.2 g/dL (5.7-8.2); Uric Acid 4.1 mg/dL (3.1-7.8)
[2025-09-26 12:41] LABS: INR 0.96 (0.9-1.15); Partial Thromboplastin Time 25.0 SEC (24.5-34.5); Prothrombin Time 10.2 sec (9.3-11.8)
[2025-09-26 12:46] LABS: Alkaline Phosphatase 118 U/L (46-116); Bilirubin, Total 0.3 mg/dL (0.2-1.0); Blood Urea Nitrogen 6 mg/dL (9-23); Chloride 107 mmol/L (98-107)
[2025-09-26 13:06] LABS: Urine Protein, UAD Negative (Negative)
[2025-09-26 13:11] LABS: Protein, Urine 8.3 mg/dL (1-14)
[2025-09-26 13:15] LABS: Amphetamine Screen, Urine Neg (NEGATIVE); Barbiturate Scree,Urine Neg (NEGATIVE); Benzodiazephine Screen, Urine Neg (NEGATIVE); Cannabinoid Screen, Urine Neg (NEGATIVE); Cocaine Screen, Urine Neg (NEGATIVE); Opiate Scree,Urine Neg (NEGATIVE); Phencyclidine Screen, Urine Neg (NEGATIVE)
--- NOTE | 2025-09-26 14:28 | DVHDS2 ---
Physician Discharge Progress N Final Diagnosis: preeclampsia 34wks ,hx of tia,depression,hx of recent psych admission,hx of migraned Operations or Procedures: Operations or Procedures nst reactive geovanna bashir Commentary: Commentary transfer to [facility],pt denied having bp problems Condition on Discharge: Higher Level of Care Disposition: Acute Care Facility Discharge Instructions: Diet: See Comment Activity: No Restrictions, As Tolerated Medications: hydralazine,labetolol Follow Up Care: Specialist: to [facility] Discharge Statement: "Patient was advised to return to the ER or call 911 if any headaches, dizziness, shortness of breath, chest pain, abdominal pain, bleeding, fevers, or worsening of medical condition. Patient was counseled about treatment plan, medications, possible side effects, patientverbalized understanding. All questions were answered to the best of my ability. This discharge took greater then 30 minutes in planning, reviewing documentation, counseling the patient, and discussing with other team members." Visit Coding OBGYN Date of Service: Sep 26, 2025 Billing Provider: ARNALDO REYNOSO DO RADIATION ONCOLOGIST Common Visit Codes: 52905-OEXIZBG OBS CARE (HIGH), 48826-TYF/OBS DISCH DAY >30MIN ARNALDO REYNOSO DO Sep 26, 2025 14:28
--- NOTE | 2025-09-26 14:41 | DVHTS ---
Transfer Summary Transfer Summary Date of Admission Sep 24, 2025 at 23:54 Date of Transfer: Sep 26, 2025 Transfer Diagnosis iup at 34 wks with pih,anxiety,depression Brief Hx & Hospital Course: pt is admitted for preelampsia recieved hydralazine for high bp. pt denied having any bp problem before ,she has hx of migrane,psych disorder and tia Transfer to: [facility] accepted theadmission Discharge Instructions: via air Transfer Status stable No Active Prescriptions or Reported Meds Visit Coding OBGYN Date of Service: Sep 26, 2025 Billing Provider: ARNALDO REYNOSO DO COCOA PRESS OPERATOR Common Visit Codes: [id number] OBS CARE (HIGH) COCOA PRESS OPERATOR Procedure Codes: 95985-56- NON-STRESS TEST ARNALDO REYNOSO DO Sep 26, 2025 14:41
--- NOTE | 2025-09-26 14:58 | DVHINCON2 ---
Date of service: Sep 26, 2025 Referring Physician hospitalist Reason for Consultation preeclampsia History of Present Illness pt is admitted for htn new onset,denies having any previous bp problems.she is swollen and has mata. her bp range is high 15- to 160 sbp and dbp 0f 90 to 100.she has hx of d epression,anxiety and migrane pt has pnc in [place] Past Medical History depression,anxiety,migrane mata ,psych admission in 12/21 Past Surgical History na Family History na Social History pos for psych ds Patient Family History: Cerebrovascular accident (CVA) dad Diabetes mellitus dad FH: HTN (hypertension) dad FH: heart attack dad mom Pacemaker dad Stent dad Suicide Thyroid disease mom Allergies: Coded Allergies: NO KNOWN ALLERGIES (Unverified , 04/24/25) Home Meds No Active Prescriptions or Reported Meds Current Medications Current Medications Medications (Trade) Dose Ordered Sig/Juliana Route PRN Reason Start Time Stop Time Status Last Admin Labetalol HCl (Normodyne Tablet) 300 mg Q12HR PO 09/26/25 11:00 09/26/25 14:16 DC 09/26/25 11:28 Review of Systems Constitutional: no fever, chill, weight loss HEENT: no eye pain, no hearing loss, no oral lesion, no scleral icterus Heart: no chest pain, no chest pressure Lung: no cough, no dyspnea with exertion Abdomen: see HPI : no pain with urination, normal appearing urine Musculoskeletal: no joint pain, no muscle pain Neurological: no seizure, no loss of sensation, no weakness in extremities Pysch: no depression, no anxiety Derm: no rash, no jaundice Vital Signs Vital Signs Date Time Temp Pulse Resp B/P (MAP) Pulse Ox O2 Delivery O2 Flow Rate FiO2 09/26/25 11:28 107 148/86 09/26/25 09:00 97.6 18 98 97.6 09/26/25 08:00 Room Air* 0 21 Physical Exam ALERT AND ORIENTEDX3 HEENT: NL NECK: NL CARDIAC: RRR PULMONARY: CTA ABDOMEN: GRAVID ,POS FH PELVIC-CX CLOSED,THICK AND HIGH EXT 2+ EDEMA Labs/Diagnostic Data Labs Test 09/26/25 11:45 09/26/25 10:41 09/24/25 20:12 09/24/25 19:14 Range/Units White Blood Count 7.2 4.4-10.8 10^3/uL Red Blood Count 4.46 4.0-5.20 10^6/uL Hemoglobin 12.6 12.2-16.2 g/dL Hematocrit 36.9 36.0-46.0 % Mean Corpuscular Volume 82.9 80.0-100.0 fL Mean Corpuscular Hemoglobin 28.2 28.0-32.0 pg Mean Corpuscular Hemoglobin Concent 34.0 32.0-36.0 g/dL Red Cell Distribution Width 13.2 11.8-14.3 % Platelet Count 245 140-450 10^3/uL Mean Platelet Volume 8.2 6.9-10.8 fL Neutrophils (%) (Auto) 80.3 H 37.0-80.0 % Lymphocytes (%) (Auto) 11.6 10.0-50.0 % Monocytes (%) (Auto) 7.0 0.0-12.0 % Eosinophils (%) (Auto) 0.9 0.0-7.0 % Basophils (%) (Auto) 0.2 0.0-2.0 % Neutrophils # (Auto) 5.8 1.6-8.6 10 ^3/uL Lymphocytes # (Auto) 0.8 0.4-5.4 10 ^3/uL Monocytes # (Auto) 0.5 0-1.3 10 ^3/uL Eosinophils # (Auto) 0.1 0-0.8 10 ^3/uL Basophils # (Auto) 0 0-0.2 10 ^3/uL Nucleated Red Blood Cells 0.0 % Prothrombin Time 10.2 9.3-11.8 sec Prothrombin Time INR 0.96 0.9-1.15 Activated Partial Thromboplast Time 25.0 24.5-34.5 SEC Sodium Level 139 136-145 mmol/L Potassium Level 3.7 3.5-5.1 mmol/L Chloride Level 107 98-107 mmol/L Carbon Dioxide Level 22 20-31 mmol/L Anion Gap 10 5-15 Blood Urea Nitrogen 6 L 9-23 mg/dL Creatinine 0.51 L 0.550-1.02 mg/dL Glomerular Filtration Rate Calc 135 >90 mL/min BUN/Creatinine Ratio 11.8 10.0-20.0 Serum Glucose 96 74-106 mg/dL Uric Acid 4.1 3.1-7.8 mg/dL Calcium Level 9.3 8.7-10.4 mg/dL Total Bilirubin 0.3 0.2-1.0 mg/dL Aspartate Amino Transferase (AST) 16 13-40 U/L Alanine Aminotransferase (ALT) 21 7-40 U/L Alkaline Phosphatase 118 H 46-116 U/L Total Protein 6.2 5.7-8.2 g/dL Albumin 3.6 3.2-4.8 g/dL Urine Color Light-yellow Yellow Urine Clarity Clear Clear Urine pH 6.5 5.0-9.0 Urine Specific [place] 1.007 1.001-1.035 Urine Protein Negative Negative Urine Ketones Negative Negative Urine Blood Negative Negative /uL Urine Nitrite Negative Negative Urine Bilirubin Negative Negative Urine Urobilinogen Normal Negative mg/dL Urine Leukocyte Esterase 2+ Negative /uL Urine RBC <1 0 - 4 /hpf Urine Microscopic WBC 2 0-5 /HPF Urine Squamous Epithelial Cells Few <5 /hpf Urine Bacteria Few H None Seen /hpf Urine Creatinine 41.86 30.0-125.0 mg/dL Urine Protein/Creatinine Ratio 0.20 Urine Glucose Normal Normal mg/dL Urine Total Protein 8.3 1-14 mg/dL Urine Opiates Screen Neg NEGATIVE Urine Fentanyl Screen Neg NEGATIVE Urine Barbiturates Screen Neg NEGATIVE Urine Phencyclidine Screen Neg NEGATIVE Urine Amphetamines Screen Neg NEGATIVE Urine Benzodiazepines Screen Neg NEGATIVE Urine Cocaine Screen Neg NEGATIVE Urine Cannabinoids Screen Neg NEGATIVE Magnesium Level 1.9 1.6-2.6 mg/dL Urine Mucus Few None Seen Primary Diagnosis IUP AT 34WKS WITH SEVERE PIH ANXIETY/DEPRESSION PER HX HX OF MIGRANE ,HX OF TIA Plan TRANSFER TO [facility] ,SPOKE TO DR GARCIA WHO ACCEPTED THE TRANSFER DR VENTURA WILL MANAGE Plan discussed with: Patient Visit Coding OBGYN Date of Service: Sep 26, 2025 Billing Provider: ARNALDO REYNOSO DO CHARCOAL UNLOADER Common Visit Codes: [id number]-[id number] OBS CARE (HIGH) CHARCOAL UNLOADER Consultation Codes: [id number] CONSULT <110MIN, 52617-Z/U INPATIENT CONSULT (HIGH) ARNALDO REYNOSO DO Sep 26, 2025 14:58
== END 2025-09-26 14:13 | disposition short-term general hospital (02) | DRG 566 ==
LOC: ER 16:42 → OVERFLOW 23:54 → CENTRAL 09-25 23:51 → LDRP 09-26 10:15
PROVIDERS: ADMIT Student in an Organized Health Care Education/Training Program; ATTEND Student in an Organized Health Care Education/Training Program
DX: O14.93 Unspecified pre-eclampsia, third trimester (principal); F32.A Depression, unspecified; Z3A.34 34 weeks gestation of pregnancy; F41.9 Anxiety disorder, unspecified; O99.343 Other mental disorders complicating pregnancy, third trimester; Z83.3 Family history of diabetes mellitus; Z82.3 Family history of stroke; Z86.73 Personal history of transient ischemic attack (TIA), and cerebral infarction without residual deficits; Z79.899 Other long term (current) drug therapy
CPT/HCPCS: 36415; 59025; 76805; 76817; 76819; 80053; 80307; 81001; 81002; 82570; 83735; 84156; 84550; 85025; 85610; 85730; 96361; 96365; 96366; 96375; 99291; G0378